=== PATIENT | male | born 1940 | race Caucasian/White ===

== ENCOUNTER → 2016-06-16 | Outpatient (CLI) | payer OTHER ==
[~2016-06-16] MED LIST: ALL100 PO; ATV1HP PO; BSP15 PO; DIPH25CA65 PO; FLV1 PO; IBUP-1050 PO; LBR25 PO; LORA-741 PO; LSN40 PO; RMR15 PO; SUPERCREAM RE; THM100 PO
[2016-06-16 17:31] LABS: URINE APPEARANCE CLEAR (CLEAR); URINE BILIRUBIN NEG (NEG); URINE COLOR YELLOW; URINE EPITHELIAL CELL AUTO 0-5 /lpf (0-5); URINE NITRITE NEG (NEG); UROBILINOGEN NEG (NEG); ZZUR CULT IF INDIC CLEAN CATCH NO
[2016-06-16 17:47] LABS: MANUAL MICROSCOPIC REQUIRED? NO; REVIEW REQ? NO
== END | disposition home or self-care (01) ==
LOC: C.LABBC 14:22
PROVIDERS: ATTEND Internal Medicine Geriatric Medicine
DX: R31.9 Hematuria, unspecified (principal)

== ENCOUNTER → 2016-07-13 | Outpatient (CLI) | payer OTHER ==
[~2016-07-13] MED LIST changes: +OPTIRAY 320 IV PRN
[2016-07-13 17:48] LABS: BLOOD UREA NITROGEN 16 mg/dl (7-18)
--- NOTE | 2016-07-13 18:00 | DIAGNOSTIC IMAGING REPORT ---
CT HEAD COMBO CT DOSE: 1074.96 mGy.cm TECHNIQUE: Noncontrast images were obtained through the brain in the axial plane. The sequence was repeated following administration of 118 Optiray 320. HISTORY: SUDDEN ONSET SEVERE HEADACHE. R51 COMPARISON: None. FINDINGS: No intra or extra-axial mass lesions are visualized. There is no CT evidence of acute cortical infarction. There is no evidence of midline shift. There is no acute hemorrhage. No calvarial fractures are visualized. There are patchy white matter hypodensities likely on a small vessel basis. There is no evidence of pathologic ventricular dilatation. There is no evidence of acute sinusitis Postcontrast images reveal no pathologically enhancing masses. IMPRESSION: No acute intracranial findings Electronically signed by: Sushil Bowling M.D. 07/13/2016 5:59 PM Dictated Date/Time: 07/13/2016 5:58 PM
== END | disposition home or self-care (01) ==
LOC: C.CTS 16:55
PROVIDERS: ATTEND Internal Medicine Geriatric Medicine
DX: R51 Headache (principal)

== ENCOUNTER → 2017-02-20 | Outpatient (CLI) | payer OTHER ==
[~2017-02-20] MED LIST changes: -OPTIRAY 320 IV PRN
[2017-02-20 17:14] LABS: BASO % 0.6 %; BASO ABS # 0.04 K/uL (0-0.2); COMPLETE YES; EOS % 1.8 %; HEMATOCRIT 46.7 % (42-52); IG% 0.3 %; LYMPH % 13.2 %; LYMPH ABS # 0.94 K/uL (1.2-3.4); MEAN CORPUSCULAR HEMOGLOBIN 29.7 pg (25-34); MEAN CORPUSCULAR HGB CONC 31.9 g/dl (32-36); MEAN PLATELET VOLUME 10.9 fL (7.4-10.4); MONO % 9.6 %; NEUT % 74.5 %; PLATELET COUNT 206 K/uL (130-400); RED BLOOD COUNT 5.02 M/uL (4.7-6.1); WHITE BLOOD COUNT 7.11 K/uL (4.8-10.8)
[2017-02-20 17:29] LABS: THYROID STIMULATING HORMONE 1.77 uIu/ml (0.300-4.500)
== END | disposition home or self-care (01) ==
LOC: C.LABBC 12:37
PROVIDERS: ATTEND Physician Assistant Medical
DX: R53.83 Other fatigue (principal); R31.9 Hematuria, unspecified

== ENCOUNTER → 2017-03-22 | Outpatient (CLI) | payer OTHER ==
[2017-03-22 17:03] LABS: ALT/SGPT 15 U/L (12-78); AST/SGOT 16 U/L (15-37); BLOOD UREA NITROGEN 10 mg/dl (7-18); BUN/CREATININE RATIO 8.3 (10-20); CALCIUM 9.3 mg/dl (8.5-10.1); CARBON DIOXIDE 25 mmol/L (21-32); CHLORIDE 103 mmol/L (98-107); CHOLESTEROL 170 mg/dl (0-200); CREATININE 1.17 mg/dl (0.60-1.40); GLUCOSE 97 mg/dl (70-99); POTASSIUM 3.9 mmol/L (3.5-5.1); SODIUM 137 mmol/L (136-145); URIC ACID 6.8 mg/dl (2.6-7.2)
[2017-03-22 17:07] LABS: ALB/GLOB RATIO 0.9 (0.9-2); ALKALINE PHOSPHATASE 95 U/L (45-117); CHOLESTEROL/HDL RATIO 2.4; HDL CHOLESTEROL 70 mg/dl; LDL CHOLESTEROL CALCULATED 86 mg/dl; TRIGLYCERIDES 68 mg/dl (0-150); VERY LOW DENSITY LIPOPROT CALC 14 mg/dl
== END | disposition home or self-care (01) ==
LOC: C.LABBC 13:34
PROVIDERS: ATTEND Internal Medicine Geriatric Medicine
DX: J42 Unspecified chronic bronchitis (principal); E78.5 Hyperlipidemia, unspecified; M10.9 Gout, unspecified; R31.9 Hematuria, unspecified; K74.60 Unspecified cirrhosis of liver; I10 Essential (primary) hypertension; N20.0 Calculus of kidney

== ENCOUNTER 2017-04-30 11:17 | Emergency (ER) | payer OTHER ==
[~2017-04-30] VITALS: Ht 172.7 cm; Wt 80.5 kg
[~2017-04-30 11:17] MED LIST changes: -BUSP-8 PO; -CHOL100027 PO; -FLUT0.15 NAE; -IBUP200T80 PO; -LAMO25TA PO; -MIRT30TA3 PO; -POLY335019 PO; -QUET1TAB91 PO; -QUET5TAB PO; -SYMIN/8045 INH
[2017-04-30 11:23] VITALS: TEMP 36.4
[2017-04-30] MEDS ORDERED: SODIUM CHLORIDE 0.9% 1000ML 1,000 ML IV STA (11:55)
[2017-04-30] MEDS ORDERED: LORAZEPAM 2 MG/ML 1 ML VIAL IV STA (11:57)
--- NOTE | 2017-04-30 11:58 | EMERGENCY ROOM VISIT NOTE ---
History Report prepared by Inga: Dominga Awan Under the Supervision of: Dr. Wai Bullock D.O. First contact with patient: 11:42 Chief Complaint: CONSTIPATION Stated Complaint: CONSTIPATION, DIZZY, CHANGE IN MEDICATIONS History of Present Illness The patient is a 77 year old male who presents to the Emergency Room with complaints of persistent constipation for the past several weeks. He is accompanied by his . 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 He reports he and his PCP, Dr. Alcazar with [facility] and Psychiatrist, Dr. Yanez, have been changing his medications recently to decrease side effects like constipation, dizziness and headaches. However, he doesn't have an appointment with Dr. Yanez for another 2 weeks. The patient reports his only other daily medication is for hypertension. He denies any personal history of stroke or cancer. He has not experienced any chest pain or shortness of breath. He does have a history of GERD and has experienced intermittent abdominal pain, but states he has no abdominal pain currently. He denies recent fevers or any weakness in the arms or legs. The patient also admits to a decreased appetite recently. Source of History: patient Onset: past several weeks [employer] Position: other (global) Timing: other (persistent) Modifying Factors (Worsening): other (recent medication changes) Associated Symptoms: + headache, No fevers, No chest pain, No SOB, No abdominal pain, No weakness (in arms or legs) Review of Systems See HPI for pertinent positives & negatives. A total of 10 systems reviewed and were otherwise negative. Past Medical & Surgical Medical Problems: (1) Anxiety state, unspecified (2) GERD (gastroesophageal reflux disease) (3) Hyperlipidemia (4) Hyponatremia Family History No pertinent family history Social History Smoking Status: Never Smoker Alcohol Use: heavy (former alcoholic) Drug Use: none Marital Status: Housing Status: lives with family Occupation Status: retired Current/Historical Medications Scheduled Budesonide/Formoterol Fumarate (Symbicort 80/4.5 Inhaler), 2 PUFFS INH BID Buspirone Hcl (Buspirone Hcl), 20 MG PO BID Cholecalciferol (Vitamin D 1000 Unit), 1,000 INTER.UNIT PO DAILY Fluticasone Propionate (Nasal) (Flonase Allergy Relief), 1 SPRAYS DALIA DAILY Folic Acid (Folic Acid), 1 TAB PO DAILY Ibuprofen (Ibu-200), 1 TAB PO QID Lamotrigine (Lamictal), 25 MG PO HS Lisinopril (Lisinopril), 40 MG PO DAILY Mirtazapine (Remeron), 30 MG PO HS Polyethylene Glycol 3350 (Miralax), 17 GM PO DAILY Quetiapine Fumarate (Seroquel), 25-50 MG PO HS Quetiapine Fumarate (Seroquel), 50 MG PO HS Thiamine HCl (Vitamin B-1), 100 MG PO QAM Allergies Coded Allergies: Amlodipine (Unverified Allergy, Mild, EDEMA, SOB, WHEEZING, WEIGHT GAIN, 04/30/17) Donepezil (Unverified Allergy, Mild, UNKNOWN, 04/30/17) Doxycycline (Unverified Allergy, Mild, RASH, 04/30/17) Esomeprazole (Unverified Allergy, Mild, GI SYMPTOMS, 04/30/17) Labetalol (Unverified Allergy, Mild, N/A, 04/30/17) Celery (Unverified Allergy, Unknown, SWELLING, 11/02/15) Physical Exam Vital Signs Date Time Temp Pulse Resp B/P (MAP) Pulse Ox O2 Delivery O2 Flow Rate FiO2 04/30/17 15:06 76 16 137/67 98 04/30/17 14:29 58 16 134/76 99 Room Air 04/30/17 13:30 62 16 125/72 99 Room Air 04/30/17 12:19 69 04/30/17 12:06 99 Room Air 04/30/17 12:05 75 16 146/76 98 Room Air 78 127/83 77 126/73 04/30/17 12:05 99 Room Air 04/30/17 11:23 36.4 73 18 115/64 96 Room Air Physical Exam GENERAL: Patient is awake alert, mildly anxious appearing but overall comfortable. EYES: Bilateral conjunctival injection noted, PERRL, EOMI. EARS, NOSE, MOUTH AND THROAT: The nose is without any evidence of any deformity. Mucous membranes are moist tongue is midline NECK: The neck is nontender and supple. RESPIRATORY: Normal respiratory effort is noted there is no evidence of wheezing rhonchi or rales CARDIOVASCULAR: Regular rate and rhythm noted there no murmurs rubs or gallops normal S1 normal S2 GASTROINTESTINAL: The abdomen is soft. Bowel sounds are present in all quadrants. Abdomen is nontender MUSCULOSKELETAL/EXTREMITIES: There is no evidence of gross deformity full range of motion is noted in the hips and shoulders SKIN: There is no obvious evidence of any rash. There are no petechiae, pallor or cyanosis noted. NEUROLOGIC: Patient is awake alert and oriented x3 strength is symmetric patellar reflexes are 2+ bilaterally Medical Decision & Procedures ER Provider Diagnostic Interpretation: Radiology results as stated below per my review and radiologist interpretation: CHEST AND ABDOMEN 2 VIEWS HISTORY: constipation COMPARISON: FINDINGS: The lungs are clear. The cardiomediastinal silhouette is within normal limits. There is no pneumoperitoneum or pneumatosis. The bowel gas pattern is unremarkable. No evidence for bowel obstruction. No renal or ureteral calculi identified. Moderate to large amount well-formed stool seen throughout the colon. Mild degenerative changes seen within the mid to lower lumbar spine. IMPRESSION: No acute cardiopulmonary process. No evidence for bowel obstruction. Moderate to large amount of well-formed stool seen throughout the colon. Electronically signed by: Yaakov Westfall M.D. 04/30/2017 1:[address] CT DOSE: 537.48 mGy.cm HISTORY: EVALUATE ALTERED MENTAL STATUS/WEAKNESS TECHNIQUE: Multiaxial CT images of the head were performed without the use of intravenous contrast. Automated exposure control was utilized for this study. A dose lowering technique was utilized adhering to the principles of ALARA. Comparison: Head CT 07/13/2016. Findings: The paranasal sinuses and mastoid air cells are clear. The calvarium and skull base are intact. There is no mass, hematoma, midline shift, acute infarct. White matter hypodensity is nonspecific but suggestive of microvascular ischemic change. The ventricles and sulci demonstrate mild age-related involutional changes. Impression: No significant change compared to the prior study. No acute intracranial abnormality. Electronically signed by: Yaakov Westfall M.D. 04/30/2017 2:18 PM Laboratory Results 04/30/17 11:40 Red Blood Count 4.86, Mean Corpuscular Volume 89.5, Mean Corpuscular Hemoglobin 31.1, Mean Corpuscular Hemoglobin Concent 34.7, Mean Platelet Volume 10.7, Neutrophils (%) (Auto) 68.0, Lymphocytes (%) (Auto) 19.1, Monocytes (%) (Auto) 9.8, Eosinophils (%) (Auto) 2.2, Basophils (%) (Auto) 0.8, Neutrophils # (Auto) 5.64, Lymphocytes # (Auto) 1.58, Monocytes # (Auto) 0.81, Eosinophils # (Auto) 0.18, Basophils # (Auto) 0.07 04/30/17 11:40 Test 04/30/17 11:40 04/30/17 12:40 White Blood Count 8.29 K/uL (4.8-10.8) Red Blood Count 4.86 M/uL (4.7-6.1) Hemoglobin 15.1 g/dL (14.0-18.0) Hematocrit 43.5 % (42-52) Mean Corpuscular Volume 89.5 fL (80-100) Mean Corpuscular Hemoglobin 31.1 pg (25-34) Mean Corpuscular Hemoglobin Concent 34.7 g/dl (32-36) Platelet Count 213 K/uL (130-400) Mean Platelet Volume 10.7 fL (7.4-10.4) Neutrophils (%) (Auto) 68.0 % Lymphocytes (%) (Auto) 19.1 % Monocytes (%) (Auto) 9.8 % Eosinophils (%) (Auto) 2.2 % Basophils (%) (Auto) 0.8 % Neutrophils # (Auto) 5.64 K/uL (1.4-6.5) Lymphocytes # (Auto) 1.58 K/uL (1.2-3.4) Monocytes # (Auto) 0.81 K/uL (0.11-0.59) Eosinophils # (Auto) 0.18 K/uL (0-0.5) Basophils # (Auto) 0.07 K/uL (0-0.2) RDW Standard Deviation 47.1 fL (36.4-46.3) RDW Coefficient of Variation 14.4 % (11.5-14.5) Immature Granulocyte % (Auto) 0.1 % Immature Granulocyte # (Auto) 0.01 K/uL (0.00-0.02) Prothrombin Time 12.0 SECONDS (9.0-12.0) Prothromb Time International Ratio 1.1 (0.9-1.1) Activated Partial Thromboplast Time 27.8 SECONDS (21.0-31.0) Partial Thromboplastin Ratio 1.1 Anion Gap 8.0 mmol/L (3-11) Est Creatinine Clear Calc Drug Dose 46.4 ml/min Estimated GFR () 62.3 Estimated GFR (Non- 53.8 BUN/Creatinine Ratio 6.1 (10-20) Calcium Level 9.4 mg/dl (8.5-10.1) Magnesium Level 2.1 mg/dl (1.8-2.4) Total Bilirubin 2.6 mg/dl (0.2-1) Direct Bilirubin 0.7 mg/dl (0-0.2) Aspartate Amino Transf (AST/SGOT) 22 U/L (15-37) Alanine Aminotransferase (ALT/SGPT) 22 U/L (12-78) Alkaline Phosphatase 81 U/L (45-117) Total Creatine Kinase 98 U/L (39-308) Creatine Kinase MB 0.9 ng/ml (0.5-3.6) Creatine Kinase MB Ratio 0.9 (0-3.0) Troponin I < 0.015 ng/ml (0-0.045) Pro-B-Type Natriuretic Peptide 628 pg/ml (0-1800) Total Protein 8.1 gm/dl (6.4-8.2) Albumin 4.1 gm/dl (3.4-5.0) Lipase 196 U/L (73-393) Thyroid Stimulating Hormone (TSH) 2.040 uIu/ml (0.300-4.500) Free Thyroxine 1.11 ng/dl (0.80-1.60) Urine Color YELLOW Urine Appearance CLEAR (CLEAR) Urine pH 8.5 (4.5-7.5) Urine Specific [place] 1.010 (1.000-1.030) Urine Protein NEG (NEG) Urine Glucose (UA) NEG (NEG) Urine Ketones NEG (NEG) Urine Occult Blood NEG (NEG) Urine Nitrite NEG (NEG) Urine Bilirubin NEG (NEG) Urine Urobilinogen NEG (NEG) Urine Leukocyte Esterase NEG (NEG) Laboratory results per my review. Medications Administered Medications (Trade) Dose Ordered Sig/Gema Route Start Time Stop Time Status Last Admin Dose Admin Sodium Chloride 1,000 ml @ 999 mls/hr Q1H1M STAT IV 04/30/17 11:55 04/30/17 12:55 DC 04/30/17 12:16 999 MLS/HR Lorazepam (Ativan Inj) 1 mg NOW STAT IV 04/30/17 11:57 04/30/17 11:58 DC 04/30/17 12:16 1 MG Lorazepam (Ativan 1MG Home Pack) 1 homepack UD ONCE PO 04/30/17 15:00 04/30/17 15:01 DC 04/30/17 15:00 1 HOMEPACK ECG Indication: weakness Rate (beats per minute): 75 Rhythm: normal sinus Findings: no ectopy, other (Diffuse ST segment depressions noted) Comparison ECG Date: no prior available ED Course 1149: The patient was evaluated in room B6. A complete history and physical examination were performed. 1155: NSS 1000 ml @ 999 mls/hr IV. 1157: Ativan 1 mg IV. 1445: I reevaluated the patient. He is feeling well and resting comfortably. I discussed his results and discharge instructions and he verbalized complete understanding and agreement. 1500: Ativan 1 mg 1 homepack PO. Medical Decision Prior records/ancillary studies reviewed. Triage Nursing notes reviewed. The patient's history was concerning for headache. Differential diagnosis: Etiologies such as migraine headache, meningitis, sinusitis, CO exposure, ICH, SAH, infection, tumor, headache, sinus thrombosis, arterial dissection, as well as others were entertained. The patient is a 77-year-old male who presented to emergency department with multiple complaints. The patient was very concerned because he feels that his anxiety medications are not working anymore. In fact he feels that they could be giving him some side effects that he is not pleased with. He also has been complaining of headache as well as constipation. The patient did not any focal neurologic deficit but he describes headache which begins in the morning. He also did not have a physical exam consistent with an acute surgical abdomen but his x-rays showed signs of constipation. I discussed the patient's laboratory and radiographic studies with him. He was treated with IV fluids and Ativan in the emergency department. On subsequent reevaluation he was pain-free and had no complaints and felt much better. He was encouraged to rest and avoid any strenuous activity. He was also encouraged to continue all medications as prescribed although he is starting to wean off some of his psychiatric medications because of the side effects. He was encouraged to do this with the help of his family doctor. He was also encouraged to return to the emergency department immediately if symptoms change worsen or the need arises. Medication Reconcilliation Current Medication List: was personally reviewed by me Blood Pressure Screening Patient's blood pressure: Normal blood pressure Blood pressure disposition: Did not require urgent referral Impression Primary Impression: Anxiety Additional Impressions: Headache Constipation Scribe Attestation The scribe's documentation has been prepared under my direction and personally reviewed by me in its entirety. I confirm that the note above accurately reflects all work, treatment, procedures, and medical decision making performed by me. Departure Information Dispostion Home / Self-Care Prescriptions Polyethylene Glycol 3350 (MIRALAX) 1 Pow Pow 17 GM PO DAILY, #527 GM Prov: Wai Bullock, DO 04/30/17 Referrals Ilan Alcazar M.D. (PCP) Patient Instructions Anxiety Disorder, Constipation, My [facility] Additional Instructions Call your family doctor in the morning to schedule follow-up appointment. Continue using Motrin and Tylenol as directed for pain. Drink plenty clear liquids. I would recommend a repeat EKG with your family DrGiselle. Return to the emergency department immediately if symptoms change worsen or the need arises. Use the Ativan only as directed. Problem Qualifiers Additional Impressions: Headache Headache type: unspecified Headache chronicity pattern: acute headache Intractability: not intractable Qualified Codes: R51 - Headache Constipation Constipation type: unspecified constipation type Qualified Codes: K59.00 - Constipation, unspecified
[2017-04-30 12:01] VITALS: Ht 172.7 cm; Wt 80.5 kg
[2017-04-30 12:06] VITALS: O2SAT 99
[2017-04-30 12:09] LABS: BASO % 0.8 %; BASO ABS # 0.07 K/uL (0-0.2); COMPLETE YES; EOS % 2.2 %; HEMATOCRIT 43.5 % (42-52); IG% 0.1 %; LYMPH % 19.1 %; LYMPH ABS # 1.58 K/uL (1.2-3.4); MEAN CELL VOLUME 89.5 fL (80-100); MEAN CORPUSCULAR HEMOGLOBIN 31.1 pg (25-34); MEAN CORPUSCULAR HGB CONC 34.7 g/dl (32-36); MEAN PLATELET VOLUME 10.7 fL (7.4-10.4); MONO % 9.8 %; PLATELET COUNT 213 K/uL (130-400); RED BLOOD COUNT 4.86 M/uL (4.7-6.1); WHITE BLOOD COUNT 8.29 K/uL (4.8-10.8)
[2017-04-30 12:20] LABS: ALT/SGPT 22 U/L (12-78); AST/SGOT 22 U/L (15-37); BLOOD UREA NITROGEN 8 mg/dl (7-18); BUN/CREATININE RATIO 6.1 (10-20); CALCIUM 9.4 mg/dl (8.5-10.1); CARBON DIOXIDE 25 mmol/L (21-32); CHLORIDE 100 mmol/L (98-107); CREATININE 1.27 mg/dl (0.60-1.40); GLUCOSE 110 mg/dl (70-99); MAGNESIUM 2.1 mg/dl (1.8-2.4); POTASSIUM 3.8 mmol/L (3.5-5.1); SODIUM 133 mmol/L (136-145)
[2017-04-30 12:29] LABS: INR 1.1 (0.9-1.1); PARTIAL THROMBOPLASTIN RATIO 1.1
[2017-04-30 12:33] LABS: ALKALINE PHOSPHATASE 81 U/L (45-117); CKMB/CK RATIO 0.9 (0-3.0)
[2017-04-30 13:13] LABS: URINE APPEARANCE CLEAR (CLEAR); URINE BILIRUBIN NEG (NEG); URINE COLOR YELLOW; URINE NITRITE NEG (NEG); URINE PH 8.5 (4.5-7.5); UROBILINOGEN NEG (NEG)
--- NOTE | 2017-04-30 13:14 | DIAGNOSTIC IMAGING REPORT ---
CHEST AND ABDOMEN 2 VIEWS HISTORY: constipation COMPARISON: FINDINGS: The lungs are clear. The cardiomediastinal silhouette is within normal limits. There is no pneumoperitoneum or pneumatosis. The bowel gas pattern is unremarkable. No evidence for bowel obstruction. No renal or ureteral calculi identified. Moderate to large amount well-formed stool seen throughout the colon. Mild degenerative changes seen within the mid to lower lumbar spine. IMPRESSION: No acute cardiopulmonary process. No evidence for bowel obstruction. Moderate to large amount of well-formed stool seen throughout the colon. Electronically signed by: Yaakov Westfall M.D. 04/30/2017 1:13 PM Dictated Date/Time: 04/30/2017 1:11 PM
[2017-04-30 13:27] LABS: MANUAL MICROSCOPIC REQUIRED? NO; REVIEW REQ? NO
--- NOTE | 2017-04-30 14:19 | DIAGNOSTIC IMAGING REPORT ---
HEAD CT NONCONTRAST CT DOSE: 537.48 mGy.cm HISTORY: EVALUATE ALTERED MENTAL STATUS/WEAKNESS TECHNIQUE: Multiaxial CT images of the head were performed without the use of intravenous contrast. Automated exposure control was utilized for this study. A dose lowering technique was utilized adhering to the principles of ALARA. Comparison: Head CT 07/13/2016. Findings: The paranasal sinuses and mastoid air cells are clear. The calvarium and skull base are intact. There is no mass, hematoma, midline shift, acute infarct. White matter hypodensity is nonspecific but suggestive of microvascular ischemic change. The ventricles and sulci demonstrate mild age-related involutional changes. Impression: No significant change compared to the prior study. No acute intracranial abnormality. Electronically signed by: Yaakov Westfall M.D. 04/30/2017 2:18 PM Dictated Date/Time: 04/30/2017 2:15 PM
[2017-04-30] MEDS ORDERED: MIRT30TA3 PO (14:43)
[2017-04-30] MEDS ORDERED: QUET1TAB91 PO (14:43)
[2017-04-30] MEDS ORDERED: BUSP-8 PO (14:43)
[2017-04-30] MEDS ORDERED: FLUT0.15 NAE (14:43)
[2017-04-30] MEDS ORDERED: QUET5TAB PO (14:43)
[2017-04-30] MEDS ORDERED: CHOL100027 PO (14:43)
[2017-04-30] MEDS ORDERED: FLV1 PO (14:43)
[2017-04-30] MEDS ORDERED: LAMO25TA PO (14:47)
[2017-04-30] MEDS ORDERED: IBUP200T80 PO (14:47)
[2017-04-30] MEDS ORDERED: SYMIN/8045 INH (14:47)
[2017-04-30] MEDS ORDERED: POLY335019 PO (14:48)
[2017-04-30] MEDS ORDERED: ATIVAN 1MG HOMEPACK PO ONE (15:00)
[2017-04-30 15:06] VITALS: BP 137/67; PULSE 76; O2SAT 98
== END 2017-04-30 15:15 | disposition home or self-care (01) ==
LOC: C.EDB 11:19
DX: F41.9 Anxiety disorder, unspecified (principal); R51 Headache; K59.00 Constipation, unspecified; K70.30 Alcoholic cirrhosis of liver without ascites; I10 Essential (primary) hypertension; Z79.899 Other long term (current) drug therapy

== ENCOUNTER → 2017-04-30 | Outpatient (CLI) | payer OTHER ==
[~2017-04-30] MED LIST changes: +BUSP-8 PO; +CHOL100027 PO; +FLUT0.15 NAE; +IBUP200T80 PO; +LAMO25TA PO; +MIRT30TA3 PO; +POLY335019 PO; +QUET1TAB91 PO; +QUET5TAB PO; +SYMIN/8045 INH
[2017-04-30 16:50] LABS: ALT/SGPT 20 U/L (12-78); AST/SGOT 20 U/L (15-37); BLOOD UREA NITROGEN 8 mg/dl (7-18); BUN/CREATININE RATIO 7.6 (10-20); CALCIUM 9.2 mg/dl (8.5-10.1); CARBON DIOXIDE 25 mmol/L (21-32); CHLORIDE 102 mmol/L (98-107); CREATININE 1.11 mg/dl (0.60-1.40); GLUCOSE 88 mg/dl (70-99); POTASSIUM 3.9 mmol/L (3.5-5.1); SODIUM 136 mmol/L (136-145)
[2017-04-30 16:53] LABS: ALB/GLOB RATIO 1.1 (0.9-2); ALKALINE PHOSPHATASE 77 U/L (45-117); CHOLESTEROL 185 mg/dl (0-200); CHOLESTEROL/HDL RATIO 1.9; HDL CHOLESTEROL 97 mg/dl; LDL CHOLESTEROL CALCULATED 74 mg/dl; TRIGLYCERIDES 71 mg/dl (0-150); VERY LOW DENSITY LIPOPROT CALC 14 mg/dl
== END | disposition home or self-care (01) ==
LOC: C.LAB 15:37
PROVIDERS: ATTEND Student in an Organized Health Care Education/Training Program
DX: Z79.899 Other long term (current) drug therapy (principal)

== ENCOUNTER → 2017-06-13 | Outpatient (CLI) | payer OTHER ==
[~2017-06-13] MED LIST changes: -ALL100 PO; -ATV1HP PO; -BSP15 PO; +BUSP-8 PO; +CHOL100027 PO; -DIPH25CA65 PO; +FLUT0.15 NAE; -IBUP-1050 PO; +IBUP200T80 PO; +LAMO25TA PO; -LBR25 PO; -LORA-741 PO; +MIRT30TA3 PO; +POLY335019 PO; +QUET1TAB91 PO; +QUET5TAB PO; -RMR15 PO; -SUPERCREAM RE; +SYMIN/8045 INH
--- NOTE | 2017-06-13 14:32 | DIAGNOSTIC IMAGING REPORT ---
R TOE(S) MIN 2 VIEWS CLINICAL HISTORY: M79.676 Great toe painrightright great [id number] pain COMPARISON: None. DISCUSSION: Considerable degenerative change first metatarsophalangeal joint. Moderate degenerative change interphalangeal joint. Mild soft tissue edema. Mild bunion deformity distal first metatarsal. IMPRESSION: 1. Moderate rather significant degenerative change first tarsometatarsal phalangeal joint 2. bunion deformity with mild hallux valgus configuration first tarsometatarsal joint. 3. Mild degenerative change interphalangeal joint. The above report was generated using voice recognition software. It may contain grammatical, syntax or spelling errors. Electronically signed by: Shai Castillo M.D. 06/13/2017 2:30 PM Dictated Date/Time: 06/13/2017 2:29 PM
== END | disposition home or self-care (01) ==
LOC: C.RADBC 14:09
PROVIDERS: ATTEND Physician Assistant Medical
DX: M19.071 Primary osteoarthritis, right ankle and foot (principal); M21.611 Bunion of right foot; M20.11 Hallux valgus (acquired), right foot